=== PATIENT | female | born 2000 | race Caucasian/White ===

== ENCOUNTER → 2022-04-03 | Outpatient (CLI) | payer BC ==
[~2022-04-03] MED LIST: CETI5 PO; SERT25 PO
[2022-04-06 03:11] LABS: CHLAMYDIA TRACHOMATIS, NAA Negative (Negative)
[2022-04-06 14:11] LABS: HSV-1 DNA Negative (Negative); HSV-2 DNA Negative (Negative)
== END | disposition home or self-care (01) ==
LOC: LAB 19:39 → LAB SHORT 19:39
PROVIDERS: Nurse Practitioner Family
DX: Z11.59 Encounter for screening for other viral diseases (principal); L50.8 Other urticaria; J02.9 Acute pharyngitis, unspecified; K12.0 Recurrent oral aphthae; R53.83 Other fatigue
CPT/HCPCS: 87081; 87491; 87529; 87591